=== PATIENT | male | born 1935 | race Caucasian/White ===

== ENCOUNTER → 2016-12-07 | Outpatient (CLI) | payer OTHER ==
--- NOTE | ~2016-12-07 | CT20 ---
[facility] A Service of [facility] & [facility] RADIOLOGY TEXT RESULTS PATIENT: MALAIKA BUTTS LOCATION: [facility] : 35 UNIT #: [id number] AGE: [address]: Nancie Mora MD SEX: M ORDER DR: [id number] [facility] [address] [place], [place] [address] [id number] O MR#: [id number] Acc #: [id number] NAME: MALAIKA BUTTS : 1935 SEX: M STUDY DATE/TIME: 12/07/2016 14:24 UNIT: [facility] ROOM: STUDY DESCRIPTION: CT Angio Lower Ext Charan Attending Physician: Nancie Mora M.D. Referring Physician: Nancie Mora M.D. Ordering Physician: Nancie Mora M.D. Primary Care Physician: Monico Pacheco M.D. MEDICAL IMAGING REPORT This report is preliminary unless electronic signature is present EXAM CT angiogram of the abdomen and pelvis, with bilateral lower extremity runoff. DATE OF EXAM 12/07/2016 INDICATION Pain in the legs for [address] images were obtained from the dome of the diaphragm through both lower extremities following the administration of intravenous contrast. Following this, 3-D reformatted images were obtained. NOTE: This CT exam was performed with one or more of the following radiation dose reduction techniques: automatic exposure control, adjustment of mA and/or kV according to patient size, and iterative reconstruction. FINDINGS Background emphysematous changes are noted. The patient is noted to have aneurysmal dilatation of the ascending thoracic aorta measuring up to about 4.3 cm. This is unchanged when compared to the exam from March 2010. Patient also has fairly significant plaque seen at the origin of the left subclavian artery, which I think results in some narrowing. I would have estimated it at probably about 30%. The patient's aortic root is also dilated measuring up to 4.5 cm which I suspect is also probably not significantly changed. 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 Dense dystrophic calcifications are seen involving the mitral valve annulus as well as involving the aortic valve annulus and there are coronary artery calcifications. There is no pleural or pericardial effusion. Distally, the descending thoracic aorta measures within normal size limits. [facility] A Service of [facility] RADIOLOGY TEXT RESULTS PATIENT: MALAIKA BUTTS LOCATION: [facility] : 35 UNIT #: [id number] AGE: [address]: Nancie Mora MD SEX: M ORDER DR: Atherosclerotic plaque extends into the celiac axis and may result in some mild narrowing. I do think there is more significant narrowing involving the superior mesenteric artery. I would estimate this at about 40% to 50%. Additional significant plaque seen at the origins of the renal arteries bilaterally and I think this probably results in some moderate narrowing at the origin of the right renal artery, probably some mild narrowing involving the proximal left renal artery. Some additional significant narrowing is suspected at the origin of the inferior mesenteric artery. Atherosclerotic plaque becomes more confluent within the infrarenal segment where the patient is noted to have extensive intraluminal neural thrombus. 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 This was also present on the exam from March of 2010. There is reconstitution of the internal and external iliac arteries at their origins bilaterally. There is extensive calcification seen throughout the internal iliac arteries bilaterally. Both external iliac arteries are diminutive. 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 This is partially thrombosed, however. Right common femoral artery is patent with some eccentric calcified. The right profunda femoris artery is patent as is the right superficial femoral artery. The right superficial femoral artery appears relatively disease free until its distal aspect at the level of Freddie's canal, where it shows segmental disease probably resulting in some moderate narrowing. Right popliteal artery is patent and shows mild disease within the above-knee segment. Right anterior tibial artery appears to occlude proximally, and I really think there is only intermittent opacification of the posterior tibial and peroneal vessels. Full assessment is limited due to the presence of dense concentric calcification involving these vessels. The appearance is very similar to the 2010 examination. As on the contralateral side, there is eccentric calcifications seen within the left superficial femoral artery. Patient's left profunda femoris artery is widely patent. Left superficial femoral artery is occluded proximally, and there is reconstitution at the level of Freddie's canal. Again, as on the contralateral side, there is eccentric plaque seen throughout the popliteal artery, particularly within the above-knee segment. It is difficult to assess flow within the calf vessels, but I think they may show at least intermittent opacification. Angiography would probably allow for more accurate assessment. The stomach appears unremarkable as are the spleen, pancreas, adrenal glands and kidneys. This patient is noted to have an intestinal malrotation with small bowel loops noted along the right side of the abdomen and colon identified within the midline and left side of the abdomen. There is no evidence of obstruction related to this. There is colonic diverticulosis without evidence of diverticulitis. Dystrophic [facility] A Service of [facility] RADIOLOGY TEXT RESULTS PATIENT: MALAIKA BUTTS LOCATION: [facility] : 35 UNIT #: [id number] AGE: [address]: Nancie Mora MD SEX: M ORDER DR: calcifications are seen within the prostate gland. Patient does have a fat-containing inguinal hernia on the left and on the right, there is an additional inguinal hernia and a portion of the bladder does protrude into this hernia. I do not see any free fluid or adenopathy within the abdomen or pelvis. IMPRESSION 1. 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 2. Atherosclerotic involvement of the abdominal aorta with extension into the origins of the distal vessels as noted above. 3. 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 Similar findings were present on the prior exam from 2009. There is reconstitution of the internal and external iliac arteries at their origins. Overall, the patient's external iliac arteries are very small in caliber. 4. The patient's right superficial femoral and profunda femoris arteries are patent as is the right popliteal artery, however, right anterior tibial artery occludes within the proximal calf, and I suspect there may only be intermittent opacification of the right peroneal and posterior tibial arteries. This is very difficult to assess in the setting of dense calcification. Angiography may allow for better assessment of the runoff vessels. 5. This patient has an occlusion at the left superficial femoral artery with distal reconstitution at the level of Freddie's canal. As on the contralateral side, it is very difficult to assess flow within the calf vessels due to dense calcifications. Again, catheter angiography, would probably better elucidate runoff to the feet. 6. 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 7. Patient is noted to have intestinal malrotation without evidence of obstruction. 8. Right inguinal hernia containing a portion of the patient's bladder. 9. Colonic diverticulosis without evidence of diverticulitis. Please see the body of the report for any other additional incidental findings. Dictated by... Cassandra Salazar M.D. THIS IS AN ELECTRONICALLY VERIFIED REPORT Cassandra Salazar M.D. at 12/08/2016 4:39 PM AFF/jt TD: 12/08/2016 15:21 JOB #: [id number] [facility] A Service of [facility] RADIOLOGY TEXT RESULTS PATIENT: MALAIKA BUTTS LOCATION: [facility] : 35 UNIT #: [id number] AGE: [address]: Nancie Mora MD SEX: M ORDER DR: MEDICAL IMAGING REPORT Page 1 of 1 COPY
--- NOTE | ~2016-12-07 | CT14 ---
[facility] A Service of [facility] RADIOLOGY TEXT RESULTS PATIENT: MALAIKA BUTTS LOCATION: [facility] : 35 UNIT #: [id number] AGE: [address]: Nancie Moar MD SEX: M ORDER DR: [id number] [address] [address] [id number] O MR#: [id number] Acc #: [id number] NAME: MALAIKA BUTTS : 1935 SEX: M STUDY DATE/TIME: 12/07/2016 14:24 UNIT: [facility] ROOM: STUDY DESCRIPTION: CT Angio Abdomen and Pelvis Attending Physician: Nancie Mora M.D. Referring Physician: Nancie Mora M.D. Ordering Physician: Nancie Mora M.D. Primary Care Physician: Monico Pacheco M.D. MEDICAL IMAGING REPORT This report is preliminary unless electronic signature is present EXAM CT angiogram of the abdomen and pelvis. DATE OF EXAM 12/07/2016 INDICATION Pain in the legs for [address] images were obtained from the dome of the diaphragm through both lower extremities following the administration of intravenous contrast. Following this, 3-D reformatted images were obtained. NOTE: This CT exam was performed with one or more of the following radiation dose reduction techniques: automatic exposure control, adjustment of mA and/or kV according to patient size, and iterative reconstruction. FINDINGS Please see CT angiogram of lower extremities, abdomen and pelvis for results. Dictated by... Cassandra Salazar M.D. THIS IS AN ELECTRONICALLY VERIFIED REPORT Cassandra Salazar M.D. at 12/08/2016 4:39 PM AFF/jt TD: 12/08/2016 15:40 JOB #: [id number] [facility] A Service [facility] RADIOLOGY TEXT RESULTS PATIENT: MALAIKA BUTTS LOCATION: [facility] : 35 UNIT #: [id number] AGE: [address]: Nancie Mora MD SEX: M ORDER DR: MEDICAL IMAGING REPORT Page 1 of 1 COPY
[2016-12-07 18:55] LABS: POC - CREATININE 1.08 mg/dL (0.64-1.27); POC - GFR >60.0 mL/min (>60)
== END | disposition home or self-care (01) ==
LOC: CCAT 12:42
PROVIDERS: Internal Medicine
DX: I70.219 Atherosclerosis of native arteries of extremities with intermittent claudication, unspecified extremity (principal); I71.2 Thoracic aortic aneurysm, without rupture; I70.0 Atherosclerosis of aorta; I74.5 Embolism and thrombosis of iliac artery; I77.1 Stricture of artery; K40.90 Unilateral inguinal hernia, without obstruction or gangrene, not specified as recurrent; K57.30 Diverticulosis of large intestine without perforation or abscess without bleeding; Q43.3 Congenital malformations of intestinal fixation
CPT/HCPCS: 73706; 74174; 74175; 82565; Q9967

== ENCOUNTER → 2017-05-19 | Outpatient (CLI) | payer OTHER ==
--- NOTE | ~2017-05-19 | CT70 ---
[facility] A Service of [facility] RADIOLOGY TEXT RESULTS PATIENT: MALAIKA BUTTS LOCATION: [facility] : 35 UNIT #: [id number] AGE: [address]: Nancie Mora MD SEX: M ORDER DR: [id number] [facility] [address] [place], [place] [address] [id number] O MR#: [id number] Acc #: [id number] NAME: MALAIKA BUTTS : 1935 SEX: M STUDY DATE/TIME: 05/19/2017 16:52 UNIT: [facility] ROOM: STUDY DESCRIPTION: CT Head WWo Contrast Attending Physician: Nancie Mora M.D. Referring Physician: Nancie Mora M.D. Ordering Physician: Nancie Mora M.D. Primary Care Physician: Nancie Mora M.D. MEDICAL IMAGING REPORT This report is preliminary unless electronic signature is present EXAM Head CT with and without contrast, 05/19/2017. HISTORY Acute onset of memory loss beginning 2 weeks ago. Difficulty focusing and concentrating, anisocoria on physical examination 05/17/2017. TECHNIQUE Multiple axial images were obtained from the skull base to vertex with and without intravenous contrast administration. This CT exam was performed with one or more of the following radiation dose reduction techniques: automatic exposure control, adjustment of mA and/or kV according to patient size, and iterative reconstruction. COMPARISON There is no prior exam for comparison. FINDINGS There is generalized enlargement of the ventricles and sulci characteristic of atrophy and there is periventricular microvascular white matter ischemic change. There is no midline shift. There is no mass or mass effect, hemorrhage or acute infarct. No intra or extraaxial fluid collections are seen. Postcontrast images show no enhancing parenchymal mass. The visualized paranasal sinuses demonstrate mucosal thickening in the maxillary and ethmoid sinuses with a small air-fluid level on the left maxillary sinus. IMPRESSION Generalized atrophy and periventricular microvascular white matter ischemic change. No acute intracranial abnormality. [facility] A Service of [facility] RADIOLOGY TEXT RESULTS PATIENT: MALAIKA BUTTS [id number] [birth year] UNIT #: [id number] AGE: [address]: Nancie Mora MD SEX: M ORDER DR: Dictated by... Curtis Hogue M.D. THIS IS AN ELECTRONICALLY VERIFIED REPORT Curtis Hogue M.D. at 05/21/2017 6:32 AM RONI/lauryn TD: 05/20/2017 22:14 JOB #: [id number] MEDICAL IMAGING REPORT Page 1 of 1 COPY
[2017-05-19 18:01] LABS: POC - CREATININE 1.11 mg/dL (0.64-1.27); POC - GFR >60.0 mL/min (>60)
== END | disposition home or self-care (01) ==
LOC: CCAT 14:18
PROVIDERS: Internal Medicine
DX: F03.90 Unspecified dementia, unspecified severity, without behavioral disturbance, psychotic disturbance, mood disturbance, and anxiety (principal); H57.02 Anisocoria; G31.9 Degenerative disease of nervous system, unspecified
CPT/HCPCS: 70470; 82565; Q9967